=== PATIENT | male | born 1970 | race African-American/Black ===

== ENCOUNTER 2017-08-11 14:43 | Observation (INO) | payer BC ==
[2017-08-11 15:15] LABS: #Lymphocytes 1.2 thou/uL (1.20-3.40); #Monocytes 0.6 thou/uL (0.11-0.59); #Neutrophils 5.4 thou/uL (1.40-6.50); %Basophils 0.3 % (0.0-1.0); %Eosinophils 0.2 % (0.0-10.0); %Lymphocytes 16.3 % (21.0-51.0); Hematocrit 43.4 % (42.0-52.0); Mean Platelet Volume 8.5 fL (7.4-10.4); Red Blood Cell (RBC) Count 4.99 mill/uL (4.70-6.10); White Blood Cell (WBC) Count 7.2 thou/uL (4.8-10.8)
[2017-08-11] MEDS ORDERED: Ondansetron HCl/PF 4 MG/2 ML Vial ONE (15:24)
[2017-08-11 15:43] LABS: ALT (SGPT) 64 U/L (8-55); AST (SGOT) 75 U/L (5-34); Alkaline Phosphatase 109 U/L (40-150); Anion Gap 20 mmol/L (10-20); BUN (Urea Nitrogen) 19 mg/dL (8.9-20.6); Bilirubin, Total 1.1 mg/dL (0.2-1.2); CK (CPK) 495 U/L (30-200); Calc. Creatinine Clearance 0 mL/min (70-130); Calcium 9.7 mg/dL (7.8-10.44); Carbon Dioxide 22 mmol/L (22-29); Chloride 105 mmol/L (98-107); Estimated GFR-MDRD 89; Globulin 4.6 g/dL (2.4-3.5)
[2017-08-11] MEDS ORDERED: Lisinopril 10 MG TAB ONE (16:08)
[2017-08-11] MEDS ORDERED: Aspirin 325 MG TAB ONE (16:08)
[2017-08-11] MEDS ORDERED: Hydrochlorothiazide 25 MG TAB PO SCH (16:30)
[2017-08-11 16:38] LABS: Acetaminophen Less than 6.0 mcg/mL (10.0-30.0); Salicylate Less than 8.0 mg/dL (15.0-30.0)
--- NOTE | 2017-08-11 17:16 | RAD ---
AP CHEST: History: Hypotension. Headache. Nausea and vomiting. Date: 08-11-17 Comparison: 09-18-13 FINDINGS: AP chest demonstrates mild cardiomegaly. The lungs are well aerated. No evidence of active intrathor acic disease is seen. No evidence of effusions, pneumonia, or pneumothorax seen. IMPRESSION: Unremarkable AP chest. POS: [facility]
[2017-08-11 18:44] LABS: Troponin I 0.187 ng/mL (< 0.028)
[2017-08-11 18:48] VITALS: BMI 30.2
[2017-08-11] MEDS ORDERED: Ondansetron ODT 4 MG TAB SL PRN (18:50)
[2017-08-11] MEDS ORDERED: Ondansetron HCl/PF 4 MG/2 ML Vial IVP PRN ×2 (18:50→19:28)
[2017-08-11] MEDS ORDERED: Acetaminophen 325 MG TAB PO PRN (18:50)
[2017-08-11] MEDS ORDERED: Acetaminophen 500 MG TAB PO PRN (19:28)
[2017-08-11] MEDS ORDERED: cloNIDine HCl 0.1 MG TAB PO PRN (19:28)
[2017-08-11] MEDS ORDERED: Ondansetron ODT 4 MG TAB PO PRN (19:28)
[2017-08-11] MEDS ORDERED: Nitroglycerin 0.4 MG TAB (25 Tab Bottle) PO PRN (19:28)
[2017-08-11] MEDS: Famotidine 20 MG TAB PO SCH (20:06)
[2017-08-11] MEDS ORDERED: Atorvastatin Calcium 20 MG TAB PO SCH (21:00)
--- NOTE | 2017-08-11 23:39 | HP ---
DATE OF ADMISSION: 08/11/2017 PRIMARY CARE PROVIDER: Dr. Galvan at [facility]. CHIEF COMPLAINT: Chest pain. HISTORY OF PRESENT ILLNESS: This is a 47-year-old -German male who presents to [facility] complaining of lightheadedness with associated nausea, vomiting, unsteady gai t and chest pain. The patient states he was walking to a friend's house out in the heat for approxi mately 15 minutes when he developed the symptoms suddenly. The patient admitted several episodes of emesis with nausea and associated chest pain. The patient denied any specific illicit ingestion re cently, but states in the last 5 days he ingested cocaine. The patient also has a history of cocain e use with cocaine positive drug screen in 04/2017. The patient also states that he saw his primary care provider in the last month. He was placed on new antihypertensive medication, but he is unsur e of the name. The patient states he has been compliant with his blood pressure medication regimen. The patient denies any known coronary artery disease and states he underwent cardiac stress testin g in the past and stated this was negative. The patient currently states he has no specific symptom s and feels back to normal. PAST MEDICAL HISTORY: 1. Hypertension, labile. 2. Noncompliance. 3. Human immunodeficiency virus with chronic antiretroviral therapy. 4. Question of remote cerebrovascular accident. 5. Polysubstance abuse including cocaine. 6. History of hepatitis C. 7. History of transient ischemic attack. 8. Bipolar disorder. 9. Depression. PAST SURGICAL HISTORY: Status post cholecystectomy. CURRENT MEDICATIONS: Based on recent admission in 04/2017: 1. Enteric coated aspirin 325 mg 1 tab p.o. daily. 2. Lipitor 20 mg p.o. at bedtime. 3. Citalopram 20 mg 1 tab p.o. daily. 4. Stribild one tablet p.o. daily. 5. Hydrochlorothiazide 25 mg 1 tab p.o. daily. 6. Lisinopril 5 mg 1 tablet p.o. daily. 7. Protonix 40 mg 1 tab p.o. daily. 8. Amlodipine 10 mg 1 tab p.o. daily. 9. Risperdal 1 mg p.o. daily. ALLERGIES: POTASSIUM. FAMILY HISTORY: Positive for coronary artery disease, hypertension, and diabetes mellitus. SOCIAL HISTORY: The patient resides in the [facility]. Positive tobacco use up to a pack of cigarettes daily. Drinks alcohol weekly. He is admits to cocaine use within last 4 to 5 days prio r to this evaluation as well as prior history of marijuana use. The patient reported at [facility]. REVIEW OF SYSTEMS: The following complete review of systems was negative, unless otherwise mentione d in the HPI or below: Constitutional: Weight loss or gain, ability to conduct usual activities. Skin: Rash, itching. Eyes: Double vision, pain. ENT/Mouth: Nose bleeding, neck stiffness, pain, tenderness. Cardiovascular: Palpitations, dyspnea on exertion, orthopnea. Respiratory: Shortness of breath, wheezing, cough, hemoptysis, fever or night sweats. Gastrointestinal: Poor appetite, abdominal pain, heartburn, nausea, vomiting, constipation, or diar mickie. Genitourinary: Urgency, frequency, dysuria, nocturia. Musculoskeletal: Pain, swelling. Neurologic/Psychiatric: Anxiety, depression. Allergy/Immunologic: Skin rash, bleeding tendency. Otherwise negative except as stated per HPI. PHYSICAL EXAMINATION: VITAL SIGNS: Currently, blood pressure 147/101, pulse 87, respiratory rate 18, temperature 98.4 deg jamal Fahrenheit, O2 saturation 97% on room air. GENERAL APPEARANCE: This is a 47-year-old -German male, alert and oriented x3, pleasant, c onversant, in no acute distress. HEENT: Pupils are equal, round, and reactive to light and accommodation. Extraocular muscles are i ntact. No scleral icterus, no conjunctival injection. Nares patent. OP is clear. NECK: Supple, no cervical adenopathy, no thyromegaly, no carotid bruits, no JVD appreciated. Cervi rudy spine with full active and passive range of motion. CHEST: Lungs are clear to auscultation bilaterally. CARDIOVASCULAR: S1, S2, without noted murmur. ABDOMEN: Rounded, soft, nontender, nondistended. Bowel sounds are positive in all four quadrants. There is no hepatosplenomegaly, no abdominal bruits, no rebound or guarding appreciated. EXTREMITIES: Warm and dry with fair turgor. No clubbing, cyanosis or asymmetric edema appreciated. Pulses palpable distally at the dorsalis pedis, posterior tibial, and popliteal arteries bilateral ly. Capillary refill less than 2 seconds. NEUROLOGIC: Cranial nerves II-XII are grossly intact. No focal or lateralizing signs appreciated. PERTINENT LABORATORY DATA AND X-RAY FINDINGS: Basic metabolic profile within normal limits. Calciu m 9.7, total bilirubin 1.1, AST 75, ALT 64, alkaline phosphatase 109, total CK 495. Troponin I rang ed between 0.150 to 0.187. BNP 201, albumin 4.4. TSH 0.88. CBC showed a white blood cell count of 7.2, hemoglobin 15.6, hematocrit 43, platelet count 263 with 75% neutrophils. Toxicology screen sh owed plasma alcohol level less than 10. Portable chest x-ray dated 08/11/2017 showed no acute cardiopulmonary process. EKG dated 08/11/2017 by my interpretation shows sinus tachycardia with occasional PVC. Normal R-wave progression noted in the precordial leads. Normal axis. No acute ST-T wave changes appreciated. ASSESSMENT AND PLAN: 1. Chest pain. The patient will be placed in observation status. We will continue serial cardiac enzymes q.3 hours x2. We will proceed with exercise Cardiolite stress testing in the a.m. given pat kenneth's comorbid risk factors. Aspirin 325 mg daily. Check fasting lipid profile in the a.m. Suspe ct the patient's presentation secondarily to illicit drug use and recent cocaine use. 2. Hypertension, labile. Suspect secondarily to illicit drug use. We will resume home antihyperte nsive regimen after confirmation with the patient. Continue serial blood pressure monitoring trend. 3. Elevated troponin I. Review of the electronic medical record shows chronic elevated troponin I dating back to 04/2017. We will continue trending troponin I and monitor clinically. No current ev idence to suggest acute coronary syndrome. Suspect demand ischemia in the context of likely illicit drug use. 4. Human immunodeficiency virus positive, on antiretroviral therapy. We will resume home regimen o f Stribild one tablet p.o. daily. 5. Transaminitis, mild. We will repeat LFTs in the a.m. The patient also with a known history of h epatitis C. 6. Prophylaxis. Sequential compression devices while in bed. Pepcid 20 mg p.o. b.i.d. 7. Code status is FULL. Surrogate medical decision maker not identified.
[2017-08-12 01:00] LABS: Troponin I 0.161 ng/mL (< 0.028)
[2017-08-12 05:10] LABS: Hematocrit 40.4 % (42.0-52.0); Mean Platelet Volume 8.4 fL (7.4-10.4); Neutrophil 32 % (42-75); White Blood Cell (WBC) Count 4.9 thou/uL (4.8-10.8)
[2017-08-12 05:17] LABS: ALT (SGPT) 55 U/L (8-55); AST (SGOT) 76 U/L (5-34); Alkaline Phosphatase 93 U/L (40-150); Anion Gap 15 mmol/L (10-20); BUN (Urea Nitrogen) 27 mg/dL (8.9-20.6); Bilirubin, Total 1.6 mg/dL (0.2-1.2); Calc. Creatinine Clearance 90 mL/min (70-130); Calcium 9.2 mg/dL (7.8-10.44); Carbon Dioxide 26 mmol/L (22-29); Chloride 101 mmol/L (98-107); Cholesterol 170 mg/dl (< 200 Desired); Estimated GFR-MDRD 71; LDL Cholesterol, Calculated 121 mg/dL; Protein, Total 7.9 g/dL (6.0-8.3)
[2017-08-12 07:27] VITALS: BP 127/74; TEMP 98.5
[2017-08-12] MEDS ORDERED: Potassium Chloride 20 MEQ TAB PO SCH (08:00)
[2017-08-12] MEDS ORDERED: [UNRECOGNIZED DRUG - OTHER] PO SCH (08:00)
[2017-08-12] MEDS: Famotidine 20 MG TAB PO SCH (08:43)
[2017-08-12] MEDS ORDERED: Aspirin 325 MG TAB PO SCH (09:00)
[2017-08-12] MEDS ORDERED: Lisinopril 5 MG TAB PO SCH (09:00)
[2017-08-12] MEDS ORDERED: risperiDONE 1 MG TAB PO SCH (09:00)
[2017-08-12] MEDS ORDERED: Hydrochlorothiazide 25 MG TAB PO SCH (09:00)
[2017-08-12 09:13] LABS: Amphetamine Not Detected (NotDetected); Methadone Not Detected (NotDetected); Methamphetamine Not Detected (NotDetected)
--- NOTE | 2017-08-12 11:00 | DIS ---
DATE OF ADMISSION: 08/11/2017 DATE OF DISCHARGE: 08/12/2017 DISCHARGE DIAGNOSES: 1. Chest pain secondary to cocaine use. 2. Hypertension, labile. 3. Medical noncompliance. 4. Human immunodeficiency virus with chronic antiretroviral therapy. 5. Polysubstance abuse. 6. Hypokalemia, mild. 7. Chronic elevated troponin I secondary to demand ischemia. CONSULTATIONS: None. PERTINENT LABORATORY DATA AND X-RAY FINDINGS: Potassium ranged between 2.8-3.6, AST 76, ALT 64, tro ponin I ranged between 0.160-0.187. BNP 201. Total cholesterol 170, triglycerides 87, HDL 32, and LDL 121. TSH 0.88. CBC within normal limits. Urine drug screen positive for cocaine. Plasma alco hol level less than 10. Portable chest x-ray dated 08/11/2017 showed no acute cardiopulmonary proce ss. HOSPITAL COURSE: Patient was observed on the telemetry unit after initially presenting with chest p ain in the context of known medical noncompliance and ongoing cocaine abuse. The patient was noted with chronically elevated troponin I due to demand ischemia. The patient was scheduled for Cardioli te stress testing; however, due to the cocaine use, the test was canceled per Cardiology instruction s. Telemetry monitoring showed sinus mechanism without evidence of acute arrhythmia or dysrhythmia. The patient remained clinically stable and chest pain free for the remainder of the hospital cours e. Overall, patient is clinically stable and ready for discharge on 08/12/2017. DISCHARGE MEDICATIONS: 1. Enteric coated aspirin 325 mg 1 tablet p.o. at bedtime. 2. HCTZ 25 mg 1 tablet p.o. daily. 3. Lisinopril 5 mg 1 tablet p.o. daily. 4. Ibuprofen 600 mg p.o. q.6 hours p.r.n. 5. Protonix 40 mg 1 tablet p.o. daily. FOLLOWUP: Patient will follow up with Dr. Selvin Galvan, [facility] within 7 d ays of discharge. CONDITION ON DISCHARGE: Stable. ACTIVITY: Ad nadiya. DIET: Heart healthy. CODE STATUS: FULL. DISPOSITION: Home 08/12/2017.
== END 2017-08-12 11:46 | disposition home or self-care (01) ==
LOC: ERS 14:43 → 2SW 17:41
PROVIDERS: ADMIT Family Medicine; ATTEND Family Medicine
DX: R07.89 Other chest pain (principal); F14.90 Cocaine use, unspecified, uncomplicated; I10 Essential (primary) hypertension; F31.9 Bipolar disorder, unspecified; F19.10 Other psychoactive substance abuse, uncomplicated; E87.6 Hypokalemia; Z88.8 Allergy status to other drugs, medicaments and biological substances; Z79.82 Long term (current) use of aspirin; Z79.899 Other long term (current) drug therapy; Z91.14 Patient's other noncompliance with medication regimen; Z21 Asymptomatic human immunodeficiency virus [HIV] infection status; Z90.49 Acquired absence of other specified parts of digestive tract; Z86.73 Personal history of transient ischemic attack (TIA), and cerebral infarction without residual deficits; Z86.19 Personal history of other infectious and parasitic diseases
CPT/HCPCS: 36415; 71010; 80053; 80061; 80306; 80307; 82553; 83880; 84443; 84484; 85007; 85025; 85027; 93005; 94760; G0378; J2405

== ENCOUNTER 2017-10-15 00:44 | Observation (INO) | payer SELFPAY ==
[2017-10-15 01:09] LABS: #Eosinphils 0.1 thou/uL (0.0-0.7); #Lymphocytes 1.6 thou/uL (1.20-3.40); #Monocytes 1.1 thou/uL (0.11-0.59); #Neutrophils 6.1 thou/uL (1.40-6.50); %Basophils 0.5 % (0.0-1.0); %Eosinophils 1.2 % (0.0-10.0); %Lymphocytes 17.7 % (21.0-51.0); %Monocytes 11.8 % (0.0-10.0); Hematocrit 45.1 % (42.0-52.0); Mean Platelet Volume 8.6 fL (7.4-10.4); Red Blood Cell (RBC) Count 5.16 mill/uL (4.70-6.10); White Blood Cell (WBC) Count 8.9 thou/uL (4.8-10.8)
[2017-10-15 01:35] LABS: Lactic Acid - Sepsis 1.9 mmol/L (0.5-2.2)
[2017-10-15 01:40] LABS: ALT (SGPT) 55 U/L (8-55); AST (SGOT) 66 U/L (5-34); Alkaline Phosphatase 93 U/L (40-150); Anion Gap 14 mmol/L (10-20); BUN (Urea Nitrogen) 13 mg/dL (8.9-20.6); Calc. Creatinine Clearance 0 mL/min (70-130); Calcium 9.2 mg/dL (7.8-10.44); Carbon Dioxide 26 mmol/L (22-29); Chloride 100 mmol/L (98-107); Estimated GFR-MDRD Greater than 90; Globulin 4.3 g/dL (2.4-3.5); Protein, Total 8.4 g/dL (6.0-8.3)
[2017-10-15] MEDS ORDERED: Ibuprofen 800 MG TAB ONE (02:42)
[2017-10-15] MEDS ORDERED: hydrALAZINE 20 MG/ML VIAL ONE (02:42)
[2017-10-15 02:55] LABS: Bilirubin Negative (Negative); Blood, Urine Negative (Negative); Glucose, Urine (Dipstick) Negative (Negative); Ketone, Urine Negative (Negative); Nitrite Negative (Negative); Protein, Urine (Dipstick) 30 mg/dL (Neg-Trace)
[2017-10-15 02:57] LABS: Bacteria/HPF None Seen HPF (None Seen); Hyaline Casts/LPF 0-3 HYALINE CAST LPF (0-3 Hyaline); Squamous Epithelial None Seen HPF (0-3); WBC/HPF None Seen HPF (0-3)
[2017-10-15] MEDS ORDERED: Nitroglycerin 2% Ointment 1 INCH/1 GM Packet ONE (04:04)
[2017-10-15 04:20] LABS: Amphetamine Not Detected (NotDetected); Methadone Not Detected (NotDetected); Methamphetamine Not Detected (NotDetected)
[2017-10-15 04:22] LABS: Troponin I 0.126 ng/mL (< 0.028)
[2017-10-15 05:36] LABS: Troponin I 0.109 ng/mL (< 0.028)
[2017-10-15] MEDS ORDERED: Ondansetron HCl/PF 4 MG/2 ML Vial IVP PRN ×2 (06:09→08:50)
[2017-10-15] MEDS ORDERED: Ondansetron ODT 4 MG TAB SL PRN (06:09)
[2017-10-15 06:17] VITALS: BMI 30.2
[2017-10-15] MEDS ORDERED: ISOVUE-370 76%-LOCM 1 ML ONE (07:50)
--- NOTE | 2017-10-15 07:56 | RAD ---
PORTABLE AP CHEST: Date: 10/15/17 HISTORY: Cough. COMPARISON: 08/11/17. FINDINGS: Cardiac silhouette and pulmonary vasculature are within normal limits for the portable technique of t he study. Pulmonary vasculature is within normal limits and the lungs remain clear. There has been no interval change from the prior study. IMPRESSION: No acute cardiopulmonary process. POS: [facility]
[2017-10-15 08:30] LABS: Troponin I 0.108 ng/mL (< 0.028)
[2017-10-15] MEDS ORDERED: Zolpidem Tartrate 5 MG TAB PO PRN (08:50)
[2017-10-15] MEDS ORDERED: Acetaminophen 325 MG TAB PO PRN (08:50)
[2017-10-15] MEDS ORDERED: Lisinopril 5 MG TAB PO SCH (09:00)
[2017-10-15] MEDS ORDERED: Sulfameth/Trimethoprim DS 800-160mg TAB PO SCH (09:00)
--- NOTE | 2017-10-15 10:20 | HP ---
PRIMARY CARE PROVIDER: Selvin Galvan M.D. REASON FOR COMPLAINT: Referred to [facility] by [facility] for c hest pain. HISTORY OF PRESENT ILLNESS: The patient gives a 3-day history of dark green sputum, cough hurting in his chest. He says he has had chills, but had no documented fever or sweats. He has had some short ness of breath. PAST MEDICAL HISTORY: Hypertension, noncompliance, HIV, not on therapy, polysubstance abuse includin g cocaine, history of hepatitis C, history of TIA, bipolar disorder, depression. PAST SURGICAL HISTORY: Cholecystectomy. CURRENT MEDICATIONS: Protonix 40 mg a day, lisinopril 5 mg a day, ibuprofen 600 mg q.6 hours p.r.n., hydrochlorothiazide 25 mg a day, and aspirin 325 mg a day. ALLERGIES: States allergic to potassium. FAMILY HISTORY: Positive for coronary artery disease, hypertension, diabetes. SOCIAL HISTORY: Smokes daily. Drinks alcohol frequently. Chronic cocaine use, occasional marijuana use. REVIEW OF SYSTEMS: CONSTITUTIONAL: Occasional lightheadedness, no headaches or fainting. EYES: No double vision, blurred vision, flashing lights. ENT: No ear pain or drainage. No nasal bleeding. No trouble swallowing. CARDIAC: See present illness. No orthopnea, no paroxysmal nocturnal dyspnea. No pressure chest amanda n. RESPIRATIONS: Cough, shortness of breath with cough, productive cough. GASTROINTESTINAL: Some nausea with present illness. No vomiting. No abdominal pain, diarrhea. GENITOURINARY: No hematuria, dysuria. MUSCULOSKELETAL: No pain or swelling in his arms or legs. NEUROLOGIC: He states he has had 2 strokes in the past with no residual. PSYCHIATRIC: History of bipolar syndrome. SKIN: No bruising, bleeding or rash. HEME/LYMPH: No tender or swollen lymph nodes in axilla, inguinal, or cervical area. PHYSICAL EXAMINATION: GENERAL: He is awake, oriented, slow to answer questions. VITAL SIGNS: Blood pressure 139/77, pulse 93, respirations 20, O2 sat 96, temperature 98.1. HEENT: Reveal pupils equal, round, and reactive to light. Extraocular movements are intact. Sclera e white. Tympanic membranes clear. Nose clear. Oral mucous membranes are wet. Dental hygiene is f air. NECK: Supple, without jugular venous distention, adenopathy or thyromegaly. CHEST: Clear to auscultation and percussion. HEART: Regular rate and rhythm. First and second heart sounds are clear. There was a soft 2/6 ejec tion murmur across the precordium. ABDOMEN: Soft, bowel sounds are normal. There is no hepatosplenomegaly, no mass, no rebound, no bru its. EXTREMITIES: Reveal no cyanosis, clubbing or edema. PULSES: Carotid, radial, femoral, and dorsalis pedis pulses intact. SKIN: Warm and dry without bruises or rash. HEME/LYMPH: No tender or swollen lymph nodes in axilla, inguinal or cervical area. NEUROLOGICAL: Cranial nerves II-XII are intact. Deep tendon reflexes symmetric. LABORATORY AND X-RAY FINDINGS: Chest x-ray: No CHF, infiltrate or cardiomegaly, reviewed by me. CT dissection, reviewed by me. No evidence of focal pneumonia. Reportedly, there is no evidence of pu lmonary embolus. EKG, sinus tachycardia, LVH with repolarization abnormality, reviewed by me. Labor atory Data: Sodium 137, potassium 3.2, BUN and creatinine 13/1.0. Blood sugar 134, AST 65, bilirubi n 1, AST 55, troponin 0.126, 0.109. Troponins in his last admission 0.187, 0.160, 0.161. ADMITTING DIAGNOSES: 1. Acute bronchitis. 2. Chest pain, noncardiac. 3. Human immunodeficiency virus, on no therapy. 4. Hypertension. 5. Ongoing cocaine abuse. 6. Hypertension. PLAN: We will place on p.o. antibiotics and probably will be discharged later today.
[2017-10-15 11:45] VITALS: TEMP 97.6
--- NOTE | 2017-10-15 11:58 | CT ---
PRELIMINARY REPORT/[facility]/EMERGENCY AFTER HOURS PROCEDURE: EXAM: CT Angiography Chest With Intravenous Contrast CLINICAL HISTORY: 47 years old, male; Pain; Chest pain; Radiating; Other: Bilat arm tingling; Patient HX: 47 yo m prese nts to ed C/O worsening cough onset a few days [employer]. Pt states that he has been coughing so much he is now having chest pain. Reports that he also started experiencing intermittent r arm numbness and tin gling and this later moved to both arms. Currently he is not experiencing numbness or tingling in eit her arm. Also reports fever, temp 103.6 per ems. Pt has h/o high BP, hep c, hiv. Hiv followed by dr. Whalen. Pt states that he thinks his last cd4 count was greater than 500 and currently not taking anti biotics. Pt states he took his BP meds today. Past medical history includes history of human immunode ficiency virus, patient is compliant with treatment, last cd4 1035, notes: TIA x2 // last in 2011 pas t medical history includes history of hypertension, hep c TECHNIQUE: Axial computed tomographic angiography images of the chest with intravenous contrast using pulmonary embolism protocol. All CT scans at this facility use one or more dose reduction techniques, viz.: aut omated exposure control; ma/kV adjustment per patient size (including targeted exams where dose is ma tched to indication; i.e. head); or iterative reconstruction technique. CONTRAST: 96 mL of [id number] administered intravenously. COMPARISON: No relevant prior studies available. FINDINGS: Pulmonary arteries: No pulmonary embolism. Aorta: No acute findings. Lungs: Minimal bibasilar atelectasis. Pleural space: Normal. No significant effusion. No pneumothorax. Heart: Normal. Bones/joints: No acute fracture. No dislocation. Soft tissues: Normal. Lymph nodes: Normal. IMPRESSION: 1. No pulmonary embolism. 2. Incidental/non-acute findings are described above. EXAM: CT Angiography Abdomen With Intravenous Contrast CLINICAL HISTORY: 47 years old, male; Pain; Chest pain; Radiating; Other: Bilat arm tingling; Patient HX: 47 yo m prese nts to ed C/O worsening cough onset a few days [employer]. Pt states that he has been coughing so much he is now having chest pain. Reports that he also started experiencing intermittent r arm numbness and tin gling and this later moved to both arms. Currently he is not experiencing numbness or tingling in eit her arm. Also reports fever, temp 103.6 per ems. Pt has h/o high BP, hep c, hiv. Hiv followed by dr. Whalen. Pt states that he thinks his last cd4 count was greater than 500 and currently not taking anti biotics. Pt states he took his BP meds today. Past medical history includes history of human immunode ficiency virus, patient is compliant with treatment, last cd4 1035, notes: TIA x2 // last in 2011 pas t medical history includes history of hypertension, hep c TECHNIQUE: Axial computed tomographic angiography images of the abdomen with intravenous contrast. All CT scans at this facility use one or more dose reduction techniques, viz.: automated exposure control; ma/kV a djustment per patient size (including targeted exams where dose is matched to indication; i.e. head); or iterative reconstruction technique. CONTRAST: 96 mL of [id number] administered intravenously. COMPARISON: No relevant prior studies available. FINDINGS: Lower thorax: No acute findings. Aorta: Mild atherosclerotic disease of the abdominal aorta, without aneurysm or dissection. Celiac trunk and mesenteric arteries: No acute findings. No occlusion or significant stenosis. Renal arteries: No acute findings. No occlusion or significant stenosis. Liver: Normal. No mass. Gallbladder and bile ducts: Gallbladder is surgically absent. No ductal dilation. Pancreas: Normal. No ductal dilation. No mass. Spleen: Normal. No splenomegaly. Adrenals: Normal. No mass. Kidneys and ureters: Normal. No hydronephrosis. No solid mass. Stomach and bowel: Normal. No obstruction. No mucosal thickening. Appendix: Appendix is normal. Intraperitoneal space: Normal. No significant fluid collection. No free air. Bones/joints: No acute fracture. No dislocation. Soft tissues: Normal. No mass. Lymph nodes: Normal. IMPRESSION: 1. No acute findings. 2. Non-acute findings are described above. Thank you for allowing us to participate in the care of your patient. Dictated and Authenticated by: Akira Perales MD 10/15/2017 2:56 AM Central Time ([place] & [place]) FINAL REPORT CT ANGIO CHEST AND ABDOMEN WITH IV CONTRAST: Technique: Multiple axial tomograms were obtained through the chest abdomen with arterial phase enhan cement with multiplanar reconstruction and 3D post processing. History: Chest pain. FINDINGS: Thoracic and abdominal aorta appear unremarkable with mild atherosclerotic changes in the abdominal a priscila. There is no dissection. There is no evidence of pulmonary embolus. I am in agreement with the preliminary report. POS: [facility]
[2017-10-15 14:35] VITALS: BP 163/99
[2017-10-15] MEDS ORDERED: FLU VACC QS2017-18 36 mo. & older 0.5 ML SYRINGE IM ONE (21:00)
[2017-10-15] MEDS ORDERED: Aspirin 325 mg Enteric Coated Tablet PO SCH (21:00)
--- NOTE | 2017-10-16 11:58 | DIS ---
PRIMARY CARE PROVIDER: Selvin Galvan M.D. DATE OF ADMISSION: 10/15/2017 DATE OF DISCHARGE: 10/15/2017 DISCHARGE DISPOSITION: Discharged home. FINAL DIAGNOSES: Atypical chest pain, asthmatic bronchitis, cocaine abuse, hypertension, human immun odeficiency virus. CODE STATUS: FULL. PENDING AT THE TIME OF DISCHARGE: Nothing. CONSULTATIONS: None. PROCEDURES: None. DIET: Diabetic diet. HOSPITAL COURSE: The patient presented with 3 days of dark green sputum with hurting in his chest wh en he coughed. His chest was clear. Vital signs were stable. Chest x-ray was clear. CT dissection , no evidence of focal pneumonia or pulmonary embolus. Troponins were in the 0.187, 0.160, 0.161 ran ge. I reviewed his old chart. These were consistent numbers with his old chart. He was positive fo r cocaine. His potassium was 3.2. AST 66, blood sugar 134. Comp metabolic profile otherwise normal . I reviewed the patient's chart in detail and discussed the situation with him. DISCHARGE MEDICATIONS: He was discharged on his usual medicines. Protonix 40 mg a day, lisinopril 5 mg a day, Motrin 600 mg q.6 hours p.r.n. pain, hydrochlorothiazide 25 mg a day, aspirin 325 mg a day , and Bactrim-DS 1 p.o. b.i.d. for 10 days. He states he has allergy to ASPIRIN. He was told to see his PCP in 1 week for followup.
--- NOTE | 2017-11-19 14:24 | EKG ---
Test Reason : Blood Pressure : / mmHG Vent. Rate : 117 BPM Atrial Rate : 117 BPM P-R Int : 152 ms QRS Dur : 074 ms QT Int : 350 ms P-R-T Axes : 043 012 093 degrees QTc Int : 488 ms Sinus tachycardia with frequent Premature ventricular complexes Possible Left atrial enlargement Left ventricular hypertrophy with repolarization abnormality Abnormal ECG Confirmed by JIMMY DUDLEY D.O. ([id number]), movie editor JOSSELIN POPE ([id number]) on 11/19/2017 2:24:10 PM Referred By: Confirmed By:JIMMY DUDLEY D.O.
== END 2017-10-15 15:32 | disposition home or self-care (01) ==
LOC: ERS 00:44 → 2SE 04:40 → INTOOBSV 04:40
PROVIDERS: ADMIT Internal Medicine; ATTEND Internal Medicine
DX: R07.89 Other chest pain (principal); J45.909 Unspecified asthma, uncomplicated; F14.10 Cocaine abuse, uncomplicated; I10 Essential (primary) hypertension; F31.9 Bipolar disorder, unspecified; F17.200 Nicotine dependence, unspecified, uncomplicated; Z21 Asymptomatic human immunodeficiency virus [HIV] infection status; Z91.19 Patient's noncompliance with other medical treatment and regimen; Z79.82 Long term (current) use of aspirin; Z79.899 Other long term (current) drug therapy; Z88.8 Allergy status to other drugs, medicaments and biological substances; Z90.49 Acquired absence of other specified parts of digestive tract; Z86.19 Personal history of other infectious and parasitic diseases; Z86.73 Personal history of transient ischemic attack (TIA), and cerebral infarction without residual deficits
CPT/HCPCS: 36415; 71010; 71275; 80053; 80306; 81003; 81015; 82553; 83605; 84484; 85025; 87040; 93005; 93010; 96361; 96374; G0378; J0360; J1956

== ENCOUNTER 2017-11-16 22:01 | Emergency (ER) | payer OTHER, SELFPAY ==
--- NOTE | 2017-11-16 22:45 | RAD ---
PA AND LATERAL OF THE CHEST 11/16/17 INDICATION: Productive cough for one week with fever at home. COMPARISON: Prior exam dated 01/28/17 and 10/15/17. FINDINGS: There is air space consolidation within the retrocardiac left lower lobe. The right lung is clear. Th e cardiomediastinal silhouette is within normal limits. No acute osseous abnormality is evident. Ther e is surgical clips within the right upper quadrant consistent with cholecystectomy. IMPRESSION: Left lower lobe pneumonia. Recommend radiographic followup to resolution. POS: [facility]
[2017-11-16 23:14] LABS: ALT (SGPT) 73 U/L (8-55); AST (SGOT) 79 U/L (5-34); Alkaline Phosphatase 79 U/L (40-150); Anion Gap 14 mmol/L (10-20); BUN (Urea Nitrogen) 12 mg/dL (8.9-20.6); Bilirubin, Total 1.2 mg/dL (0.2-1.2); Calc. Creatinine Clearance 0 mL/min (70-130); Calcium 9.7 mg/dL (7.8-10.44); Carbon Dioxide 26 mmol/L (22-29); Chloride 98 mmol/L (98-107); Eosinophils 4 % (0-10); Estimated GFR-MDRD Greater than 90; Globulin 4.5 g/dL (2.4-3.5); Glucose 109 mg/dL (70-105); Hemoglobin 14.2 g/dL (14.0-18.0); Lymphocytes 27 % (21-51); MDiff Complete? YES; Mean Corpuscular HGB CONC 34.9 g/dL (32.0-36.0); Mean Corpuscular Hemoglobin 30.1 pg (27.0-31.0); Mean Corpuscular Volume 86.1 fl (80.0-94.0); Mean Platelet Volume 8.3 fL (7.4-10.4); Monocytes 19 % (0-10); Neutrophil 50 % (42-75); PLT Morphology Comment Appears Adequate; Platelet Count 238 thou/uL (130-400); Protein, Total 8.5 g/dL (6.0-8.3); RBC Distribution Width 12.9 % (11.5-14.5); Red Blood Cell (RBC) Count 4.73 mill/uL (4.70-6.10); Sodium 135 mmol/L (136-145); White Blood Cell (WBC) Count 8.5 thou/uL (4.8-10.8)
== END 2017-11-17 01:25 | disposition home or self-care (01) ==
LOC: ERS 22:01
DX: J18.9 Pneumonia, unspecified organism (principal); B20 Human immunodeficiency virus [HIV] disease; B19.20 Unspecified viral hepatitis C without hepatic coma; F31.9 Bipolar disorder, unspecified; F20.9 Schizophrenia, unspecified; F41.9 Anxiety disorder, unspecified; I10 Essential (primary) hypertension; Z79.899 Other long term (current) drug therapy
CPT/HCPCS: 71020; 80053; 85025; 87804; 96365